=== PATIENT | female | born 1975 | race Caucasian/White ===

== ENCOUNTER → 2019-05-13 | Outpatient (CLI) | payer OTHER ==
--- NOTE | 2019-05-13 17:58 | RAD ---
Study: FOOT BILAT 3V Indication: Heel pain. Comparison: None. Findings: Left foot: No acute fracture. No radiographic findings of calcaneal stress injury. Normal osseous mineralization. No significant degenerative changes. Tiny plantar calcaneal spur. Right foot: No acute fracture. No radiographic findings of calcaneal stress injury. Normal osseous mineralization. No advanced general changes. Plantar calcaneal spur that is larger than on the left. Potential os trigonum. Impression: No acute fracture seen at either foot. Right larger than left plantar calcaneal spurs. Recommend correlation for symptoms of plantar fasciitis. Electronically signed by: RICHARD TURCIOS MD (05/13/2019 5:55 PM) [facility]
== END | disposition home or self-care (01) ==
LOC: RAD 12:06
PROVIDERS: ATTEND Internal Medicine Cardiovascular Disease
DX: M77.32 Calcaneal spur, left foot (principal); M77.31 Calcaneal spur, right foot
CPT/HCPCS: 73630